=== PATIENT | female | born 1970 | race Caucasian/White ===

== ENCOUNTER 2024-03-07 21:05 | Emergency (ER) | payer BC ==
[~2024-03-07] VITALS: Ht 165.1 cm; Wt 87.5 kg
[2024-03-07 22:05] VITALS: BP 159/104; O2SAT 99
== END 2024-03-07 22:05 | disposition home or self-care (01) ==
LOC: ER 21:06
DX: Z13.9 Encounter for screening, unspecified (principal); R03.0 Elevated blood-pressure reading, without diagnosis of hypertension; F41.9 Anxiety disorder, unspecified
CPT/HCPCS: A4606; A4663